=== PATIENT | male | born 1945 | race Caucasian/White ===

== ENCOUNTER → 2022-04-14 13:43 | Outpatient (CLI) | payer MEDICARE, OTHER, SELFPAY ==
--- NOTE | 2022-04-14 13:44 | DI.RAD.S_ITS ---
PROCEDURE: XR LUMBAR SPINE MIN 4V INDICATIONS: Low back pain TECHNIQUE: 5 views of the lumbar spine were acquired, including bilateral oblique views. COMPARISON: None. FINDINGS: Bones: 5 nonrib-bearing vertebrae are present. There is normal bony alignment. No vertebral body compression fractures. No suspicious bony lesions. There is multilevel disc space narrowing degenerative endplate changes are most prominent at the L5-S1 level. Facet hypertrophy is seen throughout the lumbar spine that is also most prominent at the L5-S1 level. Soft tissues: Overlying bowel gas pattern is normal. No suspicious soft tissue calcifications. Oblique images: No pars defects. IMPRESSION: Moderate multilevel spondylosis, which is most prominent at the L5-S1 level. Lumbar spine MRI could be performed for further evaluation if indicated clinically. Approved by: Darrel Gonzalez M.D. on 04/14/2022 at 21:45
== END ==
PROVIDERS: PCP Family Medicine; Referring Provider Anesthesiology; Visit Provider Anesthesiology
DX: M47.816 Spondylosis without myelopathy or radiculopathy, lumbar region (principal); M47.817 Spondylosis without myelopathy or radiculopathy, lumbosacral region; M54.50 Low back pain, unspecified
CPT/HCPCS: 72110

== ENCOUNTER 2022-04-20 09:25 | Outpatient (CLI) | payer MEDICARE, OTHER, SELFPAY ==
--- NOTE | 2022-04-20 09:26 | DI.RAD.S_ITS ---
PROCEDURE: PAIN L/S FACET INJ/BLK 1ST ABBIE COMPARISON: [facility], CR, XR LUMBAR SPINE MIN 4V, 04/14/2022, 13:44. INDICATIONS: SPINAL STENOSIS FINDINGS: Fluoroscopic images demonstrate spinal needles projecting over the right and left L3-4, L4-5, and L5-S1 facets, as labeled on the images. Appropriate location of needles was confirmed with injection of iodinated contrast material. IMPRESSION: Appropriate needle placement as labeled on the fluoroscopic images. Approved by: Darrel Gonzalez M.D. on 04/20/2022 at 10:37
[2022-04-20 09:39] VITALS: BP 130/86; PULSE 85; RESP 20; TEMP 36.1; O2SAT 100
[2022-04-20 09:59] VITALS: BP 122/72; PULSE 87; RESP 20; O2SAT 96
[2022-04-20 10:00] VITALS: BP 132/80; PULSE 86; RESP 20; O2SAT 97
[2022-04-20] MEDS: BUPIVACAINE 0.5% MDV 10 ML SUBCUT (10:00)
[2022-04-20] MEDS: IOPAMIDOL 15 ML VIAL 3 ML INJ (10:01)
[2022-04-20 10:05] VITALS: BP 118/74; PULSE 86; RESP 19; O2SAT 97
[2022-04-20 10:10] VITALS: BP 119/78; PULSE 86; RESP 22; O2SAT 96
[2022-04-20 10:19] VITALS: BP 120/73; PULSE 86; RESP 19; O2SAT 98
--- NOTE | 2022-04-20 12:28 | P.PCN_ITS ---
Date/Time/Diagnoses Date of procedure: 04/20/22 Time of procedure: 10:00 Procedure Notes Physician: Vladimir Cherry Total Fluoroscopy time (seconds): 19 Total sedation minutes: 0 Procedure in detail & Post-procedure care: Bilateral L3, 4, 5 Lumbar Medial Branch Blocks Indications: Shashi is referred by Dr. Lua for treatment of lumbar spondylosis with low back. Preoperative diagnosis: Bilateral lumbar spondylosis Postoperative diagnosis: Same Pre-procedure History: Patient demonstrates today moderate to severe non- radicular back pain without neurologic deficit aggravated by hyperextension yes Back pain greater than leg pain? yes Patient today has tenderness over the suspected joint(s) yes History of post-traumatic injury? now Hypertrophic arthropathy yes Back pain associated with suspected motion segment instability, hypermobility or pseudoarthrosis no Pre-testing pain score (VAS): 7/10 Focused Examination: Ax3 Mood and affect are normal Vital Signs: VSS ASA: 2 Consent: Following review of allergies and potential side effects/complications, including, but not necessarily limited to, infection, allergic reaction, local tissue breakdown, stroke, temporary or permanent nerve injury, paralysis, and possible , the patient indicated that they understood and agreed to proceed.? An informed consent document was signed by the patient, witnessed by a nurse and placed in the patient's chart.? Additionally, other treatment options including medications and physical therapy were reviewed with the patient. All questions were answered. Site was then marked. Anesthesia: Local Position: Prone Monitoring: NIBP, Pulse oximetry, 3 lead EKG Needle used: 22G 3.5 inch spinal needle Contrast: Isovue 300M Injectate: 0.5% Bupivacaine 1 mL at each site Procedure: The patient was brought into the procedure room and positioned into the prone position. Skin was prepped with a Chloraprep solution, allowed to air dry, and then draped in sterile fashion.? The right L3, 4, 5 facet joints were visually identified with fluoroscopy. Lidocaine 1% was used to anesthetize the skin over each target destination with a 25ga needle. A 22 ga, 3.5 inch spinal needle was advanced to the location of the medial branch at the junction of the superior articular process and the transverse process using intermittent fluoroscopy in the AP view. Isovue 300M contrast 0.2ml was injected at each level outlining the medial borders for each level and the base of the SAP of the sacrum in the AP and lateral views. There was no evidence of vascular or intrathecal uptake. The above injectate was slowly injected at each target destination. The above procedure was then repeated for the left L3, 4, 5 facet joints. At the end of the procedure the needles were withdrawn and Band-Aids were applied for a dressing. Post Procedure: Patient was taken to the recovery and monitored. The patient was provided a Pain Log to continue to record the patient's response to the target- specific procedure prior to the patient's follow-up visit with the referring physician. Patient was stable upon discharge. Detailed post procedure instructions were provided. Patient was asked to call in the event of worsening pain, fever, weakness, numbness or bladder or bowel incontinence. Postoperatively, today patient demonstrates the following changes with hyperextension and with tenderness over the suspected joint(s). Provacative testing using the Goddard's facet loading test Right side Left side Directly before the block ?VAS (0-10) = 7/10 VAS (0-10) = 7/10 5 minutes after the block VAS (0-10) = 5/10 VAS (0-10) = 5/10 Any improved physical functioning directly after the blocks? Walking and range of motion Based on the medial branches blocked today, if the patient meets insurance [facility] for radiofrequency, the treatment should result in the denervation of the L4-5 and L5-S1 facet joint nerves. We would expect to denervate a total of 4 facets during the radiofrequency ablation.
== END 2022-04-20 10:23 | disposition home or self-care (01) ==
LOC: RAD 09:26
PROVIDERS: Family Provider Anesthesiology; PCP Family Medicine; Referring Provider Anesthesiology; Visit Provider Anesthesiology
DX: M47.816 Spondylosis without myelopathy or radiculopathy, lumbar region (principal)
CPT/HCPCS: 64493; 64494